=== PATIENT | female | born 1955 ===

== ENCOUNTER 2017-07-30 14:37 | Emergency (ER) | payer OTHER ==
[~2017-07-30] VITALS: Ht 162.6 cm; Wt 68.0 kg
[2017-07-30] MEDS ORDERED: methylPREDNISolone SOD SUCC 125 MG/2 ML VIAL IV ONE (15:00)
[2017-07-30] MEDS ORDERED: diphenhydrAMINE 50 MG/1 ML VIAL IV ONE (15:00)
[2017-07-30] MEDS ORDERED: methylPREDNISolone SOD SUCC 125 MG/2 ML VIAL ONE (15:01)
[2017-07-30] MEDS ORDERED: diphenhydrAMINE 50 MG/1 ML VIAL ONE (15:01)
[2017-07-30] MEDS ORDERED: KETOROLAC TROMETHAMINE 15 MG INJ IVP ONE (15:30)
[2017-07-30] MEDS ORDERED: KETOROLAC TROMETHAMINE 15 MG INJ ONE (15:31)
--- NOTE | 2017-07-30 17:32 | NUR ---
IV removed. Catheter intact and site benign. Pressure and 4x4 gauze applied to site. No bleeding noted. Patient discharged to home in stable conditon. Written and verbal after care instructions given to patient and patient's adult daughter. Patient and family verbalized understanding of instructions. Patient left ER with steady gait.
== END 2017-07-30 17:34 | disposition home or self-care (01) ==
LOC: ER 14:37
DX: S13.4XXA Sprain of ligaments of cervical spine, initial encounter (principal); M54.9 Dorsalgia, unspecified; R20.0 Anesthesia of skin; L50.9 Urticaria, unspecified; I10 Essential (primary) hypertension; Z88.0 Allergy status to penicillin; V43.52XA Car driver injured in collision with other type car in traffic accident, initial encounter; Y92.410 Unspecified street and highway as the place of occurrence of the external cause; Y93.89 Activity, other specified; Y99.8 Other external cause status
CPT/HCPCS: 72125; 72131; A4663; J1200; J1885; J2930